=== PATIENT | female | born 1985 | race Caucasian/White ===

== ENCOUNTER 2019-11-22 12:48 | Emergency (ER) | payer MEDICAID, SELFPAY ==
[~2019-11-22] VITALS: Ht 170.2 cm; Wt 83.5 kg
[2019-11-22 12:50] VITALS: Ht 170.2 cm; Wt 83.5 kg
[2019-11-22 13:49] VITALS: BP 124/84
== END 2019-11-22 13:49 | disposition home or self-care (01) ==
LOC: ED 12:48
DX: H60.93 Unspecified otitis externa, bilateral (principal)